=== PATIENT | female | born 1995 ===

== ENCOUNTER → 2023-09-24 13:01 | Outpatient (ROUT) | payer BC, SELFPAY ==
[2023-09-25 16:08] LABS: Candida species Negative (Negative); Gardnerella vaginalis Positive (Negative); Trichomoas vaginalis Negative (Negative)
== END ==
PROVIDERS: Visit Provider Physician Assistant Medical
DX: N89.8 Other specified noninflammatory disorders of vagina (principal)
CPT/HCPCS: 87480; 87510; 87660